=== PATIENT | female | born 1995 | race Caucasian/White ===

== ENCOUNTER 2018-09-03 22:41 | Emergency (ER) | payer SELFPAY ==
[~2018-09-03] VITALS: Ht 165.1 cm; Wt 81.8 kg
[2018-09-03 22:50] VITALS: Ht 165.1 cm; Wt 81.8 kg
[2018-09-03] MEDS ORDERED: LORAZEPAM 2 MG INJ IM ONE ×2 (23:30)
--- NOTE | 2018-09-04 01:21 | ERD ---
ER Documentation Chief Complaint Chief Complaint METH/HEROIN OVERDOSE--ALOC HPI This is a 23-year-old female who says she is meth and heroin today. She denies suicidal homicidal ideation. Denies auditory or visual hallucinations. Patient is a chronic narcotic abuser. She said she is checking into rehab in 2 days. ROS All systems reviewed and are negative except as per history of present illness. Medications Home Meds Unable to Obtain Active Prescriptions or Reported Meds Allergies Allergies: Coded Allergies: No Known Allergy (Unverified , 09/03/18) PMhx/Soc Medical and Surgical Hx: pt denies Surgical Hx Hx Psychiatric Problems: Yes (anxiety, depression, borderline personality disorder) Hx Miscellaneous Medical Probl: Yes (hepatitis C) Hx Alcohol Use: No Hx Substance Use: Yes (cocaine, meth, heroin, marijuana) Hx Tobacco Use: Yes Smoking Status: Current every day smoker Physical Exam Vitals Vital Signs Date Temp Pulse Resp B/P (MAP) Pulse Ox O2 O2 Flow FiO2 Time Delivery Rate 09/04/18 90 16 117/81 98 Nasal 2.0 08:30 (93) Cannula 09/04/18 98.3 68 16 115/88 97 Nasal 2.0 06:30 (97) Cannula 09/04/18 81 21 142/88 100 Nasal 2.0 04:06 (106) Cannula 09/04/18 97.8 92 19 112/66 100 Room Air 01:27 (81) 09/03/18 107 27 133/79 96 Nasal 2.0 23:37 (97) Cannula 09/03/18 99.9 140 28 185/98 99 22:50 (127) Physical Exam Const: No acute distress Head: Atraumatic Eyes: Normal Conjunctiva ENT: Normal External Ears, Nose and Mouth. Neck: Full range of motion. No meningismus. Resp: Clear to auscultation bilaterally Cardio: Regular rate and rhythm, no murmurs Abd: Soft, non tender, non distended. Normal bowel sounds Skin: No petechiae or rashes Back: No midline or flank tenderness Ext: No cyanosis, or edema Neur: Awake and alert Psych: Normal Mood and Affect Results 24 hrs Laboratory Tests Test 09/03/18 23:10 Urine Opiates Screen Positive Urine Barbiturates Negative Urine Amphetamines Screen POSITIVE Urine Benzodiazepines Screen Negative Urine Cocaine Screen Negative Urine Cannabinoids Positive Current Medications Medications Dose Sig/Esequiel Start Time Status Last (Trade) Ordered Route PRN Stop Time Admin Dose Reason Admin Lorazepam 2 mg ONCE ONCE 09/03/18 DC 09/03/18 (Ativan) IM 23:30 23:06 09/03/18 23:31 Lorazepam 2 mg ONCE ONCE 09/03/18 DC (Ativan) IM 23:30 09/03/18 23:31 Procedures/MDM Medical decision making: This is a 23-year-old female use drugs. She has been advised to stop using drugs and seek outpatient therapy. Patient has a plan to seek outpatient therapy at a treatment center. 1055: Patient reevaluated. She is awake and able to express a care plan. She has no clear decompensated mental illness requiring hospitalization. She seems appropriate for discharge. She is not homeless. We will work to find a responsible adult for her to go home with. Departure Diagnosis: Primary Impression: Drug abuse Condition: Stable Patient Instructions: Drug Abuse CY SILVESTRE Sep 04, 2018 01:20 NISH LOW Sep 04, 2018 10:54
[2018-09-04 10:56] VITALS: BP 110/70; PULSE 94; RESP 20
== END 2018-09-04 13:40 | disposition home or self-care (01) ==
LOC: E/R 22:41
DX: F15.10 Other stimulant abuse, uncomplicated (principal); F17.210 Nicotine dependence, cigarettes, uncomplicated; F11.10 Opioid abuse, uncomplicated; R40.2222 Coma scale, best verbal response, incomprehensible words, at arrival to emergency department; R40.2352 Coma scale, best motor response, localizes pain, at arrival to emergency department; R40.2142 Coma scale, eyes open, spontaneous, at arrival to emergency department
CPT/HCPCS: 80307; 96372; 99284; J2060